=== PATIENT | male | born 1995 | race Caucasian/White ===

== ENCOUNTER 2017-12-08 03:15 | Emergency (ER) | payer SELFPAY ==
--- NOTE | 2017-12-08 04:29 | EDM.PDOC ---
ED HPI GENERAL MEDICAL PROBLEM - General Chief Complaint: General Stated Complaint: CHEST PAIN/PULLED MUSCLE Time Seen by Provider: 12/08/17 04:15 Source of Information: Reports: Patient History Limitations: Reports: No Limitations - History of Present Illness INITIAL COMMENTS - FREE TEXT/NARRATIVE: 22 yo male injured a rib a few days ago. Now can't sleep. Took ibuprofen with partial relief. Not SOB. Onset: Sudden Onset Date: 12/05/17 Duration: Day(s):, Constant Location: Reports: Chest Quality: Reports: Sharp Severity: Moderate Improves with: Reports: Rest Worsens with: Reports: Movement Context: Reports: Trauma Associated Symptoms: Reports: No Other Symptoms Treatments SUGAR CANE GROWER: Reports: NSAIDS, Other (see below) Other Treatments SUGAR CANE GROWER: none right upper chest Pain Score (Numeric/FACES): 6 - Related Data Allergies Allergy/AdvReac Type Severity Reaction Status Date / Time No Known Allergies Allergy Verified 12/08/17 04:02 Home Meds: Home Meds NK [No Known Home Meds] 12/08/17 [History] Past Medical History HEENT History: Reports: Impaired Vision Musculoskeletal History: Reports: Fracture - Infectious Disease History Infectious Disease History: Reports: Chicken Pox Social & Family History - Tobacco Use Smoking Status *Q: Never Smoker - Caffeine Use Caffeine Use: Reports: Coffee - Recreational Drug Use Recreational Drug Use: No ED ROS GENERAL - Review of Systems Review Of Systems: See Below Constitutional: Reports: No Symptoms HEENT: Reports: No Symptoms Respiratory: Reports: No Symptoms Cardiovascular: Reports: No Symptoms GI/Abdominal: Reports: No Symptoms : Reports: No Symptoms Musculoskeletal: Reports: Other (anterior rib pain) Neurological: Reports: No Symptoms ED EXAM, GENERAL - Physical Exam Exam: See Below Exam Limited By: No Limitations General Appearance: Alert, WD/WN, No Apparent Distress Nose: Normal Inspection Throat/Mouth: Normal Voice, No Airway Compromise Head: Atraumatic, Normocephalic Neck: Normal Inspection Respiratory/Chest: No Respiratory Distress, Lungs Clear, Normal Breath Sounds, No Accessory Muscle Use, Other (tender just to the R of the sternum with palpation. No crepitus.) Cardiovascular: Regular Rate, Rhythm GI/Abdominal: Normal Bowel Sounds, Soft, Non-Tender, No Distention. No: Tender Back Exam: Normal Inspection Extremities: Normal Inspection, Normal Range of Motion, Non-Tender, No Pedal Edema Neurological: Alert, Oriented, CN II-XII Intact, Normal Cognition, No Motor/ Sensory Deficits Psychiatric: Normal Affect, Normal Mood Skin Exam: Warm, Dry, Intact, Normal Color, No Rash Course - Vital Signs Last Recorded V/S: Last Vital Signs Temp 35.8 C 12/08/17 04:09 Pulse 61 12/08/17 04:09 Resp 16 12/08/17 04:09 BP 113/62 12/08/17 04:09 Pulse Ox 98 12/08/17 04:09 Departure - Departure Time of Disposition: 04:29 Disposition: Home, Self-Care 01 Condition: Good Clinical Impression: Rib pain on right side - Discharge Information Referrals: PCP,None [Primary Care Provider] - Forms: ED Department Discharge
== END 2017-12-08 04:41 | disposition home or self-care (01) ==
LOC: JP.ED 03:15
DX: R07.81 Pleurodynia (principal)
CPT/HCPCS: 99283; 99285